=== PATIENT | male | born 1945 | race Caucasian/White ===

== ENCOUNTER 2017-01-16 09:25 | Outpatient (CLI) | payer MEDICARE ==
[2017-01-16 14:16] LABS: ALBUMIN/GLOBULIN RATIO 1.4 (1.0-2.2); BILIRUBIN,TOTAL 0.7 mg/dL (0.2-1.0); CALCIUM 8.9 mg/dL (8.5-10.3); CREATININE 0.7 mg/dL (0.6-1.2); TOTAL PROTEIN 6.8 g/dL (6.7-8.2)
[2017-01-19 08:16] LABS: HDL LARGE 5529 nmol/L (4334-10815); LDL MEDIUM 165 nmol/L (167-465); LDL PARTICLE NUMBER 810 nmol/L (1016-2185); LDL PATTERN A Pattern (A); LDL PEAK SIZE 219.3 Angstrom (> OR = 218.2); LDL SMALL 126 nmol/L (123-441)
[2017-01-19 19:57] LABS: TEST RESULT REPORT
== END 2017-01-16 09:26 | disposition home or self-care (01) ==
LOC: LAB.WCP 09:25
PROVIDERS: ATTEND Specialist
DX: I25.10 Atherosclerotic heart disease of native coronary artery without angina pectoris (principal); E78.5 Hyperlipidemia, unspecified; I10 Essential (primary) hypertension; I45.10 Unspecified right bundle-branch block
CPT/HCPCS: 36415; 80053; 81599; 82465; 83704; 83718; 84478

== ENCOUNTER 2017-09-28 08:13 | Outpatient (CLI) | END 2017-09-28 08:14 | disposition home or self-care (01) ==

== ENCOUNTER 2017-12-31 08:50 | Outpatient (CLI) | payer MEDICARE ==
[2017-12-31 14:53] LABS: ALBUMIN 4.1 g/dL (3.2-5.5); ALBUMIN/GLOBULIN RATIO 1.6 (1.0-2.2); BILIRUBIN,TOTAL 0.8 mg/dL (0.2-1.0); CALCIUM 8.8 mg/dL (8.5-10.3); CREATININE 0.7 mg/dL (0.6-1.2); TOTAL PROTEIN 6.6 g/dL (6.7-8.2)
[2018-01-02 18:06] LABS: HDL LARGE 4389 nmol/L (3382-9376); LDL PARTICLE NUMBER 836 nmol/L (732-2035); LDL PATTERN B Pattern (A); LDL PEAK SIZE 216.8 Angstrom (> OR = 217.4); LDL SMALL 140 nmol/L (85-473)
== END 2017-12-31 08:51 | disposition home or self-care (01) ==
LOC: LAB.WCP 08:50
PROVIDERS: ATTEND Specialist
DX: E78.2 Mixed hyperlipidemia (principal)
CPT/HCPCS: 36415; 80053; 81599; 82465; 83704; 83718; 84478

== ENCOUNTER 2019-01-02 08:00 | Outpatient (CLI) | payer MEDICARE ==
[2018-12-31 12:05] LABS: BASOPHILS % (AUTO) 0.6 %; EOSINOPHILS # (AUTO) 0.2 10^3/uL (0.0-0.7); EOSINOPHILS % (AUTO) 3.3 %; LYMPHOCYTES # (AUTO) 1.4 10^3/uL (1.5-3.5); LYMPHOCYTES % (AUTO) 21.9 %; MEAN CORPUSCULAR HEMOGLOBIN 31.6 pg (27.0-31.0); MEAN CORPUSCULAR HGB CONC 32.4 g/dL (32.0-36.0); MEAN CORPUSCULAR VOLUME 97.3 fL (80.0-94.0); MEAN PLATELET VOLUME 11.4 fL (7.4-11.4); MONOCYTES # (AUTO) 0.6 10^3/uL (0.0-1.0); MONOCYTES % (AUTO) 9.9 %; NEUTROPHILS # (AUTO) 4.1 10^3/uL (1.5-6.6); NEUTROPHILS % (AUTO) 64.1 %; PLT - PLATELET COUNT 172 10^3/uL (130-450); RED BLOOD COUNT 4.12 10^6/uL (4.70-6.10); RED CELL DISTRIBUTION WIDTH 13.6 % (12.0-15.0); WHITE BLOOD COUNT 6.4 x10^3/uL (4.8-10.8)
[2018-12-31 12:30] LABS: PSA FREE 1.372 ng/mL (0.16-2.81)
[2018-12-31 12:31] LABS: PSA TOTAL 3.962 ng/mL (0.000-2.000)
[2018-12-31 12:33] LABS: HB2 TOTAL 13.8 g/dL; HEMOGLOBIN A1C 0.52 g/dL; HEMOGLOBIN A1C % 5.6 % (4.6-6.2)
[2018-12-31 12:34] LABS: ALBUMIN 3.8 g/dL (3.2-5.5); ALBUMIN/GLOBULIN RATIO 1.4 (1.0-2.2); ALKALINE PHOSPHATASE 66 IU/L (42-121); ALT ALANINE AMINOTRANSFERASE 30 IU/L (10-60); AST ASPARTATE AMINOTRANSFERASE 27 IU/L (10-42); BILIRUBIN,TOTAL 0.7 mg/dL (0.2-1.0); BUN - BLOOD UREA NITROGEN 11 mg/dL (6-20); CALCIUM 8.7 mg/dL (8.5-10.3); CARBON DIOXIDE - CO2 29 mmol/L (21-32); CHLORIDE 103 mmol/L (101-111); CHOL/HDL RATIO 3.3 (<5.0); CHOLESTEROL 143 mg/dL; CREATININE 0.6 mg/dL (0.6-1.2); GFR - MDRD 133 (>89); GLUCOSE 110 mg/dL (70-100); HDL CHOLESTEROL 43 mg/dL; LDL CHOLESTEROL,CALCULATED 76 mg/dL; LDL/HDL RATIO 1.8 (<3.6); SODIUM 137 mmol/L (135-145); TOTAL PROTEIN 6.6 g/dL (6.7-8.2); VLDL CHOLESTEROL 24 mg/dL
== END 2019-01-02 23:59 | disposition home or self-care (01) ==
LOC: LAB.WCP 08:00
PROVIDERS: ATTEND Physician Assistant Medical
DX: R73.01 Impaired fasting glucose (principal); R94.31 Abnormal electrocardiogram [ECG] [EKG]; D64.9 Anemia, unspecified; E78.5 Hyperlipidemia, unspecified; F52.21 Male erectile disorder; E78.2 Mixed hyperlipidemia
CPT/HCPCS: 36415; 80053; 80061; 83036; 83721; 84153; 84154; 84443; 85025

== ENCOUNTER 2019-01-26 10:33 | Outpatient (CLI) | payer MEDICARE ==
--- NOTE | 2019-01-26 18:56 | Ultrasound Report ---
Reason: GLOBUS SENSATION Procedure Date: 01/26/2019 Accession Number: [id number] / [id number] Procedure: US - Head or Neck Soft Tissue CPT Code: FULL RESULT: EXAM: THYROID ULTRASOUND EXAM DATE: 01/26/2019 11:15 AM. CLINICAL HISTORY: GLOBUS SENSATION.. Full feeling in the neck COMPARISON: None. TECHNIQUE: Real time sonographic imaging of the thyroid was performed by the underwear welter. Multiple healthcare representative static images were saved for review. FINDINGS: THYROID GLAND: Right Lobe: 4.9 x 1.6 x 1.6 cm, volume 6.5 cc. Normal background echotexture. Right Lobe Nodules: Complex predominantly hypoechoic 6 x 4 x 6 mm upper pole nodule. Left Lobe: 4 x 1.6 x 1.5 cm, volume 5 cc. Normal background echotexture. Left Lobe Nodules: 5 x 3 x 6 mm spongiform lower pole nodule. Isthmus: 0.3 cm AP. Isthmic Nodules: None. LYMPH NODES: No adenopathy demonstrated in the central or lateral compartment. OTHER: None. IMPRESSION: No significant abnormality thyroid ultrasound. Management recommendations are based on 2015 [place] [employer] Management Guidelines for Adult Patients with Thyroid Nodules and Differentiated Thyroid Cancer. RADIA
== END 2019-01-26 10:34 | disposition home or self-care (01) ==
LOC: DI 10:33
PROVIDERS: ATTEND Physician Assistant Medical
DX: F45.8 Other somatoform disorders (principal)
CPT/HCPCS: 76536

== ENCOUNTER 2019-07-01 08:00 | Outpatient (CLI) | payer MEDICARE ==
[2019-07-01 12:13] LABS: ALBUMIN/GLOBULIN RATIO 1.4 (1.0-2.2); ALKALINE PHOSPHATASE 63 IU/L (42-121); ALT ALANINE AMINOTRANSFERASE 24 IU/L (10-60); AST ASPARTATE AMINOTRANSFERASE 26 IU/L (10-42); BILIRUBIN,TOTAL 0.7 mg/dL (0.2-1.0); BUN - BLOOD UREA NITROGEN 12 mg/dL (6-20); CARBON DIOXIDE - CO2 29 mmol/L (21-32); CHLORIDE 105 mmol/L (101-111); CHOL/HDL RATIO 3.1 (<5.0); CHOLESTEROL 146 mg/dL; CREATININE 0.7 mg/dL (0.6-1.2); GLUCOSE 108 mg/dL (70-100); HDL CHOLESTEROL 47 mg/dL; LDL CHOLESTEROL,CALCULATED 80 mg/dL; LDL/HDL RATIO 1.7 (<3.6); PSA FREE 1.13 ng/mL (0.16-2.81); SODIUM 140 mmol/L (135-145); TOTAL PROTEIN 6.9 g/dL (6.7-8.2); VLDL CHOLESTEROL 19 mg/dL
[2019-07-01 12:14] LABS: PSA TOTAL 3.67 ng/mL (0.000-2.000)
== END 2019-07-01 23:59 | disposition home or self-care (01) ==
LOC: LAB.WCP 08:00
PROVIDERS: ATTEND Physician Assistant Medical
DX: E78.5 Hyperlipidemia, unspecified (principal); R97.20 Elevated prostate specific antigen [PSA]
CPT/HCPCS: 36415; 80053; 80061; 83721; 84153; 84154

== ENCOUNTER 2019-11-03 08:08 | Outpatient (CLI) | payer MEDICARE ==
[2019-11-03 11:56] LABS: ALBUMIN/GLOBULIN RATIO 1.4 (1.0-2.2); CALCIUM 8.8 mg/dL (8.5-10.3); CREATININE 0.6 mg/dL (0.6-1.2); TOTAL PROTEIN 6.8 g/dL (6.7-8.2)
[2019-11-07 20:44] LABS: HDL LARGE 5088 nmol/L (>6729); LDL PARTICLE NUMBER 834 nmol/L (<1138); LDL PATTERN A Pattern (A); LDL PEAK SIZE 218.7 Angstrom (>222.9); LDL SMALL 141 nmol/L (<142)
== END 2019-11-03 23:59 | disposition home or self-care (01) ==
LOC: LAB.WCP 08:08
PROVIDERS: ATTEND Specialist
DX: E78.2 Mixed hyperlipidemia (principal)
CPT/HCPCS: 36415; 80053; 80061; 81599; 83704

== ENCOUNTER 2020-01-13 08:42 | Outpatient (CLI) | payer MEDICARE ==
[2020-01-13 12:23] LABS: ALBUMIN/GLOBULIN RATIO 1.4 (1.0-2.2); ALKALINE PHOSPHATASE 73 IU/L (42-121); ALT ALANINE AMINOTRANSFERASE 28 IU/L (10-60); AST ASPARTATE AMINOTRANSFERASE 28 IU/L (10-42); BILIRUBIN,TOTAL 0.8 mg/dL (0.2-1.0); BUN - BLOOD UREA NITROGEN 12 mg/dL (6-20); CALCIUM 8.9 mg/dL (8.5-10.3); CARBON DIOXIDE - CO2 28 mmol/L (21-32); CHLORIDE 105 mmol/L (101-111); CHOL/HDL RATIO 2.8 (<5.0); CHOLESTEROL 138 mg/dL; CREATININE 0.7 mg/dL (0.6-1.2); GLUCOSE 114 mg/dL (70-100); HDL CHOLESTEROL 49 mg/dL; LDL CHOLESTEROL,CALCULATED 71 mg/dL; LDL/HDL RATIO 1.4 (<3.6); SODIUM 138 mmol/L (135-145); TOTAL PROTEIN 6.8 g/dL (6.7-8.2); VLDL CHOLESTEROL 18 mg/dL
[2020-01-13 12:24] LABS: PSA FREE 1.31 ng/mL (0.16-2.81)
[2020-01-13 12:25] LABS: PSA TOTAL 4.36 ng/mL (0.000-2.000)
[2020-01-13 18:43] LABS: BASOPHILS # (AUTO) 0.1 10^3/uL (0.0-0.1); BASOPHILS % (AUTO) 0.8 %; EOSINOPHILS # (AUTO) 0.3 10^3/uL (0.0-0.7); EOSINOPHILS % (AUTO) 4.1 %; HGB - HEMOGLOBIN 13.1 g/dL (14.0-18.0); LYMPHOCYTES # (AUTO) 1.6 10^3/uL (1.5-3.5); LYMPHOCYTES % (AUTO) 23.8 %; MEAN CORPUSCULAR HEMOGLOBIN 32.4 pg (27.0-31.0); MEAN CORPUSCULAR HGB CONC 33.2 g/dL (32.0-36.0); MEAN CORPUSCULAR VOLUME 97.8 fL (80.0-94.0); MEAN PLATELET VOLUME 11.7 fL (7.4-11.4); MONOCYTES # (AUTO) 0.7 10^3/uL (0.0-1.0); MONOCYTES % (AUTO) 10.4 %; NEUTROPHILS % (AUTO) 60.4 %; PLT - PLATELET COUNT 169 10^3/uL (130-450); RED BLOOD COUNT 4.04 10^6/uL (4.70-6.10); RED CELL DISTRIBUTION WIDTH 13.4 % (12.0-15.0); WHITE BLOOD COUNT 6.7 x10^3/uL (4.8-10.8)
== END 2020-01-13 23:59 | disposition home or self-care (01) ==
LOC: LAB.WCP 08:42
PROVIDERS: ATTEND Physician Assistant Medical
DX: E78.5 Hyperlipidemia, unspecified (principal); R97.20 Elevated prostate specific antigen [PSA]; D64.9 Anemia, unspecified
CPT/HCPCS: 36415; 80053; 80061; 83721; 84153; 84154; 85025

== ENCOUNTER 2020-07-19 08:00 | Outpatient (CLI) | payer MEDICARE ==
[2020-07-19 12:20] LABS: ALBUMIN 3.9 g/dL (3.2-5.5); ALBUMIN/GLOBULIN RATIO 1.3 (1.0-2.2); BILIRUBIN,TOTAL 0.7 mg/dL (0.2-1.0); CALCIUM 9.2 mg/dL (8.5-10.3); CREATININE 0.6 mg/dL (0.6-1.2); POTASSIUM 4.1 mmol/L (3.5-5.0); TOTAL PROTEIN 6.8 g/dL (6.7-8.2)
== END 2020-07-19 23:59 | disposition home or self-care (01) ==
LOC: LAB.WCP 08:00
PROVIDERS: ATTEND Physician Assistant Medical
DX: R73.01 Impaired fasting glucose (principal)
CPT/HCPCS: 36415; 80053

== ENCOUNTER 2020-07-24 08:00 | Outpatient (CLI) | payer MEDICARE ==
[2020-07-24 18:37] LABS: PSA FREE 0.993 ng/mL (0.16-2.81)
[2020-07-24 18:38] LABS: BASOPHILS % (AUTO) 0.7 %; EOSINOPHILS # (AUTO) 0.1 10^3/uL (0.0-0.7); EOSINOPHILS % (AUTO) 1.6 %; HCT - HEMATOCRIT 42.8 % (42.0-52.0); LYMPHOCYTES # (AUTO) 1.4 10^3/uL (1.5-3.5); LYMPHOCYTES % (AUTO) 24.7 %; MEAN CORPUSCULAR HEMOGLOBIN 32.4 pg (27.0-31.0); MEAN CORPUSCULAR HGB CONC 32.7 g/dL (32.0-36.0); MEAN CORPUSCULAR VOLUME 99.1 fL (80.0-94.0); MEAN PLATELET VOLUME 11.4 fL (7.4-11.4); MONOCYTES # (AUTO) 0.6 10^3/uL (0.0-1.0); MONOCYTES % (AUTO) 10.9 %; NEUTROPHILS # (AUTO) 3.6 10^3/uL (1.5-6.6); NEUTROPHILS % (AUTO) 61.8 %; PLT - PLATELET COUNT 169 10^3/uL (130-450); PSA TOTAL 3.139 ng/mL (0.000-2.000); RED BLOOD COUNT 4.32 10^6/uL (4.70-6.10); RED CELL DISTRIBUTION WIDTH 13.3 % (12.0-15.0); WHITE BLOOD COUNT 5.8 x10^3/uL (4.8-10.8)
[2020-07-24 20:08] LABS: ESTIMATED AVERAGE GLUCOSE 117 mg/dL (70-100); HEMOGLOBIN A1c% 5.7 % (4.27-6.07)
== END 2020-07-24 23:59 | disposition home or self-care (01) ==
LOC: LAB.WCP 08:00
PROVIDERS: ATTEND Physician Assistant Medical
DX: D64.9 Anemia, unspecified (principal); R73.01 Impaired fasting glucose; R97.20 Elevated prostate specific antigen [PSA]
CPT/HCPCS: 36415; 83036; 84153; 84154; 85025

== ENCOUNTER 2020-11-12 08:00 | Outpatient (CLI) | payer MEDICARE ==
[2020-11-12 12:44] LABS: BASOPHILS % (AUTO) 0.8 %; EOSINOPHILS # (AUTO) 0.2 10^3/uL (0.0-0.7); EOSINOPHILS % (AUTO) 3.5 %; HCT - HEMATOCRIT 41.2 % (42.0-52.0); HGB - HEMOGLOBIN 13.6 g/dL (14.0-18.0); LYMPHOCYTES # (AUTO) 1.4 10^3/uL (1.5-3.5); LYMPHOCYTES % (AUTO) 27.1 %; MEAN CORPUSCULAR HEMOGLOBIN 32.5 pg (27.0-31.0); MEAN CORPUSCULAR VOLUME 98.3 fL (80.0-94.0); MEAN PLATELET VOLUME 11.7 fL (7.4-11.4); MONOCYTES # (AUTO) 0.5 10^3/uL (0.0-1.0); NEUTROPHILS # (AUTO) 3.1 10^3/uL (1.5-6.6); NEUTROPHILS % (AUTO) 58.4 %; PLT - PLATELET COUNT 169 10^3/uL (130-450); RED BLOOD COUNT 4.19 10^6/uL (4.70-6.10); RED CELL DISTRIBUTION WIDTH 13.6 % (12.0-15.0); WHITE BLOOD COUNT 5.2 x10^3/uL (4.8-10.8)
[2020-11-12 12:54] LABS: ALBUMIN/GLOBULIN RATIO 1.7 (1.0-2.2); ALKALINE PHOSPHATASE 66 IU/L (42-121); ALT ALANINE AMINOTRANSFERASE 26 IU/L (10-60); AST ASPARTATE AMINOTRANSFERASE 26 IU/L (10-42); BILIRUBIN,TOTAL 0.9 mg/dL (0.2-1.0); BUN - BLOOD UREA NITROGEN 11 mg/dL (6-20); CARBON DIOXIDE - CO2 29 mmol/L (21-32); CHLORIDE 101 mmol/L (101-111); CHOLESTEROL 141 mg/dL; CREATININE 0.6 mg/dL (0.6-1.2); GFR - MDRD 132 (>89); GLUCOSE 118 mg/dL (70-100); HDL CHOLESTEROL 47 mg/dL; LDL CHOLESTEROL,CALCULATED 74 mg/dL; LDL/HDL RATIO 1.6 (<3.6); POTASSIUM 4.1 mmol/L (3.5-5.0); SODIUM 136 mmol/L (135-145); TOTAL PROTEIN 6.4 g/dL (6.7-8.2); TRIGLYCERIDES 102 mg/dL; VLDL CHOLESTEROL 20 mg/dL
[2020-11-12 13:28] LABS: ESTIMATED AVERAGE GLUCOSE 108 mg/dL (70-100); HEMOGLOBIN A1c% 5.4 % (4.27-6.07)
== END 2020-11-12 23:59 | disposition home or self-care (01) ==
LOC: LAB.WCP 08:00
PROVIDERS: ATTEND Physician Assistant Medical
DX: R73.01 Impaired fasting glucose (principal); D64.9 Anemia, unspecified
CPT/HCPCS: 36415; 80053; 80061; 83036; 83721; 85025

== ENCOUNTER 2020-12-13 08:49 | Outpatient (CLI) | payer MEDICARE ==
[2020-12-13 12:37] LABS: CALCIUM 9.3 mg/dL (8.5-10.3); CREATININE 0.7 mg/dL (0.6-1.2); POTASSIUM 4.2 mmol/L (3.5-5.0)
== END 2020-12-13 23:59 | disposition home or self-care (01) ==
LOC: LAB.WCP 08:49
PROVIDERS: ATTEND Specialist
DX: I10 Essential (primary) hypertension (principal)
CPT/HCPCS: 36415; 80048

== ENCOUNTER 2021-02-12 07:18 | Outpatient (CLI) | payer MEDICARE ==
[2021-02-12 12:06] LABS: BASOPHILS % (AUTO) 0.7 %; EOSINOPHILS # (AUTO) 0.1 10^3/uL (0.0-0.7); EOSINOPHILS % (AUTO) 2.4 %; HGB - HEMOGLOBIN 13.8 g/dL (14.0-18.0); LYMPHOCYTES # (AUTO) 1.5 10^3/uL (1.5-3.5); LYMPHOCYTES % (AUTO) 27.1 %; MEAN CORPUSCULAR HEMOGLOBIN 32.9 pg (27.0-31.0); MEAN CORPUSCULAR HGB CONC 33.7 g/dL (32.0-36.0); MEAN CORPUSCULAR VOLUME 97.6 fL (80.0-94.0); MEAN PLATELET VOLUME 11.2 fL (7.4-11.4); MONOCYTES # (AUTO) 0.5 10^3/uL (0.0-1.0); MONOCYTES % (AUTO) 9.9 %; NEUTROPHILS # (AUTO) 3.2 10^3/uL (1.5-6.6); NEUTROPHILS % (AUTO) 59.5 %; PLT - PLATELET COUNT 178 10^3/uL (130-450); RED CELL DISTRIBUTION WIDTH 13.2 % (12.0-15.0); WHITE BLOOD COUNT 5.4 x10^3/uL (4.8-10.8)
[2021-02-12 12:14] LABS: ESTIMATED AVERAGE GLUCOSE 117 mg/dL (70-100); HEMOGLOBIN A1c% 5.7 % (4.27-6.07)
[2021-02-12 12:20] LABS: CALCIUM 9.2 mg/dL (8.5-10.3); CREATININE 0.7 mg/dL (0.6-1.2); POTASSIUM 4.3 mmol/L (3.5-5.0)
== END 2021-02-12 07:19 | disposition home or self-care (01) ==
LOC: LAB.N 07:18
PROVIDERS: ATTEND Physician Assistant Medical
DX: D64.9 Anemia, unspecified (principal); R73.01 Impaired fasting glucose
CPT/HCPCS: 36415; 80048; 83036; 85025

== ENCOUNTER 2021-08-14 08:01 | Outpatient (CLI) | payer MEDICARE ==
[2021-08-14 11:55] LABS: BASOPHILS # (AUTO) 0.1 10^3/uL (0.0-0.1); EOSINOPHILS # (AUTO) 0.3 10^3/uL (0.0-0.7); EOSINOPHILS % (AUTO) 5.3 %; HCT - HEMATOCRIT 39.6 % (42.0-52.0); HGB - HEMOGLOBIN 13.6 g/dL (14.0-18.0); LYMPHOCYTES # (AUTO) 1.5 10^3/uL (1.5-3.5); LYMPHOCYTES % (AUTO) 26.4 %; MEAN CORPUSCULAR HEMOGLOBIN 32.9 pg (27.0-31.0); MEAN CORPUSCULAR HGB CONC 34.3 g/dL (32.0-36.0); MEAN CORPUSCULAR VOLUME 95.9 fL (80.0-94.0); MEAN PLATELET VOLUME 11.3 fL (7.4-11.4); MONOCYTES # (AUTO) 0.7 10^3/uL (0.0-1.0); MONOCYTES % (AUTO) 11.8 %; NEUTROPHILS # (AUTO) 3.2 10^3/uL (1.5-6.6); PLT - PLATELET COUNT 189 10^3/uL (130-450); RED BLOOD COUNT 4.13 10^6/uL (4.70-6.10); WHITE BLOOD COUNT 5.8 x10^3/uL (4.8-10.8)
[2021-08-14 12:07] LABS: ALBUMIN 4.2 g/dL (3.2-5.5); ALBUMIN/GLOBULIN RATIO 1.6 (1.0-2.2); ALKALINE PHOSPHATASE 77 IU/L (42-121); ALT ALANINE AMINOTRANSFERASE 26 IU/L (10-60); AST ASPARTATE AMINOTRANSFERASE 29 IU/L (10-42); BILIRUBIN,TOTAL 0.8 mg/dL (0.2-1.0); BUN - BLOOD UREA NITROGEN 12 mg/dL (6-20); CALCIUM 9.2 mg/dL (8.5-10.3); CARBON DIOXIDE - CO2 27 mmol/L (21-32); CHLORIDE 100 mmol/L (101-111); CHOL/HDL RATIO 2.4 (<5.0); CHOLESTEROL 119 mg/dL; CREATININE 0.7 mg/dL (0.6-1.2); GFR - MDRD 111 (>89); GLUCOSE 128 mg/dL (70-100); HDL CHOLESTEROL 49 mg/dL; LDL CHOLESTEROL,CALCULATED 57 mg/dL; LDL/HDL RATIO 1.2 (<3.6); POTASSIUM 4.5 mmol/L (3.5-5.0); SODIUM 135 mmol/L (135-145); TOTAL PROTEIN 6.9 g/dL (6.7-8.2); TRIGLYCERIDES 65 mg/dL; VLDL CHOLESTEROL 13 mg/dL
== END 2021-08-14 08:02 | disposition home or self-care (01) ==
LOC: LAB.N 08:01
PROVIDERS: ATTEND Physician Assistant Medical
DX: E78.5 Hyperlipidemia, unspecified (principal); D64.9 Anemia, unspecified
CPT/HCPCS: 36415; 80053; 80061; 83721; 85025

== ENCOUNTER 2021-10-22 08:28 | Outpatient (CLI) | payer MEDICARE ==
[2021-10-22 13:18] LABS: ALBUMIN 4.2 g/dL (3.2-5.5); ALBUMIN/GLOBULIN RATIO 1.5 (1.0-2.2); BILIRUBIN,TOTAL 0.7 mg/dL (0.2-1.0); CALCIUM 9.3 mg/dL (8.5-10.3); CREATININE 0.6 mg/dL (0.6-1.2); POTASSIUM 4.4 mmol/L (3.5-5.0)
== END 2021-10-22 08:29 | disposition home or self-care (01) ==
LOC: LAB.N 08:28
PROVIDERS: ATTEND Specialist
DX: E78.2 Mixed hyperlipidemia (principal)
CPT/HCPCS: 36415; 80053; 83704

== ENCOUNTER 2021-10-31 07:15 | Outpatient (CLI) | payer MEDICARE ==
[2021-11-03 08:07] LABS: HDL-P (TOTAL) 28.5 umol/L (>=30.5); LDL SIZE 20.9 nm (>20.5); LDL-P 588 nmol/L (<1000); LP-INSULIN RESISTANCE SCORE 49 (<=45); SMALL LDL-P 271 nmol/L (<=527)
== END 2021-10-31 07:16 | disposition home or self-care (01) ==
LOC: LAB.N 07:15
PROVIDERS: ATTEND Specialist
DX: E78.2 Mixed hyperlipidemia (principal)
CPT/HCPCS: 36415; 83704

== ENCOUNTER 2022-03-11 07:22 | Day surgery (SDC) | payer MEDICARE ==
[2022-03-11] MEDS ORDERED: LACTATED RINGERS 1,000 ML IV ONE ×2 (07:55→09:38)
--- NOTE | 2022-03-11 08:18 | ANESTHESIA ---
Pre-Anesthesia VS, & Labs - Diagnosis +cologaurd - Procedure colonoscopy Vital Signs: Temp Pulse Resp BP Pulse Ox O2 Flow Rate 36.6 C 63 16 141/73 H 100 03/11/22 07:48 03/11/22 07:48 03/11/22 07:48 03/11/22 07:48 03/11/22 07:48 Height: 5 ft 8 in Weight (kg): 67.1 kg Body Mass Index: 22.4 BMI Classification: Normal - NPO >8 hours Home Medications and Allergies Home Medications: Ambulatory Orders Brimonidine 0.1% Ophth Drops [Alphagan P 0.1% Ophth Drops] 1 drops EACHEYE DAILY 03/10/22 Latanoprost/Pf [Latanoprost 0.005% Eye Drop] 1 drops OP DAILY 03/10/22 Timolol [Betimol] 5 ml EACHEYE DAILY 03/10/22 Aspirin Chewable [[facility] Aspirin] 1 tab ORAL DAILY 08/26/12 Lovastatin 1 tab ORAL HS 08/26/12 Niacin [Niaspan] 1,500 mg ORAL DAILY 08/26/12 lisinopriL [Zestril] 10 mg PO DAILY 08/26/12 Brimonidine 0.1% Ophth Drops [Alphagan P 0.1% Ophth Drops] 1 drops EACHEYE DAILY 03/10/22 Latanoprost/Pf [Latanoprost 0.005% Eye Drop] 1 drops OP DAILY 03/10/22 Timolol [Betimol] 5 ml EACHEYE DAILY 03/10/22 Allergies/Adverse Reactions: Allergies Allergy/AdvReac Type Severity Reaction Status Date / Time No Known Drug Allergies Allergy Verified 08/26/12 09:39 Anes History & Medical History - Anesthetic History Anesthesia Complications: reports: No previous complications Family history of Anesthesia Complications: Denies Family history of Malignant Hyperthermia: Denies - Medical History Cardiovascular: reports: Hypertension, High cholesterol, Coronary artery disease (Angioplasty 2002) Pulmonary: reports: None Gastrointestinal: reports: GERD, Hiatal hernia, Other (pt states differntial dx: hiatal hernia) Urinary: reports: None Neuro: reports: None Musculoskeletal: reports: None Endocrine/Autoimmune: reports: None Blood Disorders: reports: None Smoking Status: Never smoker Psychosocial: reports: No issues indicated History of Cancer?: No - Surgical History General: reports: EGD, Colonoscopy Eyes Ears Nose Throat (EENT): reports: Other (wisdom tooth removal) Cardiothoracic: reports: Angioplasty Exam General: Alert, Oriented x3, Cooperative, No acute distress Dental: WNL Mouth Openin Fingerbreadth Neck Mobility: Normal Mallampati classification: III Thyromental Distance: 4-6 cm Mental/Cognitive Status: Alert/Oriented X3, Normal for patient Cognitive Status: Within normal limits Plan Anesthesia Type: General, Total IV Consent for Procedure(s) Verified and Reviewed: Yes Code Status: Attempt Resuscitation ASA classification: 2-Mild systemic disease Is this case an emergency?: No
[2022-03-11] MEDS ORDERED: PROPOFOL 500 MG/50 ML 500 MG/50 ML VIAL ONE (08:28)
[2022-03-11 10:34] VITALS: BP 133/65
--- NOTE | 2022-03-11 12:09 | ANESTHESIA POST OP EVALUATION ---
Anesthesia Post Eval - Post Anesthesia Eval Vitals: Last Vital Signs Temp 36.2 C L 03/11/22 10:15 Pulse 56 L 03/11/22 10:15 Resp 16 03/11/22 10:15 BP 133/65 H 03/11/22 10:15 Pulse Ox 100 03/11/22 10:15 O2 Flow Rate CV Function Including HR & BP: Stable Pain Control: Satisfactory Nausea & Vomiting: Negative Mental Status: Baseline Respiratory Status: Airway Patent Hydration Status: Satisfactory Anesthesia Complications: None
== END 2022-03-11 07:23 | disposition home or self-care (01) ==
LOC: SDS 07:22
PROVIDERS: ATTEND Surgery
DX: R19.5 Other fecal abnormalities (principal); K57.30 Diverticulosis of large intestine without perforation or abscess without bleeding
CPT/HCPCS: 45378; J7120

== ENCOUNTER 2022-08-26 09:25 | Day surgery (SDC) | payer MEDICARE ==
--- NOTE | 2022-08-26 07:02 | ANESTHESIA ---
Pre-Anesthesia VS, & Labs - Diagnosis positive cologuard - Procedure colonoscopy Height: 5 ft 8 in - NPO >8 hours Last Fluid Intake: am prep - Lab Results Lab results reviewed: Yes Home Medications and Allergies Aspirin Chewable [[facility] Aspirin] 1 tab ORAL DAILY 08/26/12 Niacin [Niaspan] 1,500 mg ORAL DAILY 08/26/12 Brimonidine 0.1% Ophth Drops [Alphagan P 0.1% Ophth Drops] 1 drops EACHEYE DAILY 03/10/22 Latanoprost/Pf [Latanoprost 0.005% Eye Drop] 1 drops OP DAILY 03/10/22 Timolol [Betimol] 5 ml EACHEYE DAILY 03/10/22 Allergies/Adverse Reactions: Allergies Allergy/AdvReac Type Severity Reaction Status Date / Time No Known Drug Allergies Allergy Verified 08/26/12 09:39 Anes History & Medical History - Anesthetic History Anesthesia Complications: reports: No previous complications Family history of Anesthesia Complications: Denies Family history of Malignant Hyperthermia: Denies - Medical History Cardiovascular: reports: Hypertension, High cholesterol, Coronary artery disease Pulmonary: reports: None Gastrointestinal: reports: GERD, Hiatal hernia Urinary: reports: None Neuro: reports: None Musculoskeletal: reports: None Endocrine/Autoimmune: reports: None Blood Disorders: reports: None Smoking Status: Never smoker - Surgical History General: reports: Colonoscopy Eyes Ears Nose Throat (EENT): reports: Other (wisdom tooth removal) Cardiothoracic: reports: Coronary stent Exam General: Alert, Oriented x3, Cooperative Dental: WNL Mouth Openin Fingerbreadth Neck Mobility: Normal Mallampati classification: II Thyromental Distance: 4-6 cm Respiratory: Lungs clear, Normal breath sounds, No respiratory distress Cardiovascular: Regular rate Neurological: Normal speech Mental/Cognitive Status: Alert/Oriented X3, Normal for patient Cognitive Status: Within normal limits Plan Anesthesia Type: Total IV Consent for Procedure(s) Verified and Reviewed: Yes Code Status: Attempt Resuscitation ASA classification: 2-Mild systemic disease Is this case an emergency?: No
[2022-08-26] MEDS ORDERED: PROPOFOL 500 MG/50 ML 500 MG/50 ML VIAL ONE (09:31)
[2022-08-26] MEDS ORDERED: MIDAZOLAM 2 MG/2 ML VIAL ONE (09:54)
[2022-08-26] MEDS ORDERED: LACTATED RINGERS 1,000 ML IV ONE ×2 (10:05→11:00)
[2022-08-26] MEDS ORDERED: GLYCOPYRROLATE 1 MG/5 ML VIAL ONE (10:17)
[2022-08-26] MEDS ORDERED: PHENYLEPHRINE 10 MG/ML VIAL ONE (10:51)
[2022-08-26 11:17] VITALS: BP 132/65
--- NOTE | 2022-08-26 11:31 | ANESTHESIA POST OP EVALUATION ---
Anesthesia Post Eval - Post Anesthesia Eval Vitals: Last Vital Signs Temp 36.2 C L 08/26/22 11:15 Pulse 68 08/26/22 11:15 Resp 16 08/26/22 11:15 BP 132/65 H 08/26/22 11:15 Pulse Ox 98 08/26/22 11:15 O2 Flow Rate CV Function Including HR & BP: Stable Pain Control: Satisfactory Nausea & Vomiting: Negative Mental Status: Baseline Respiratory Status: Airway Patent Hydration Status: Satisfactory Anesthesia Complications: None
== END 2022-08-26 09:26 | disposition home or self-care (01) ==
LOC: SDS 09:25
PROVIDERS: ATTEND Surgery
PROC: 0DBL8ZZ Excision of Transverse Colon, Via Natural or Artificial Opening Endoscopic (ICD-10-PCS; 2022-08-26)
PROC: 3E0H8KZ Introduction of Other Diagnostic Substance into Lower GI, Via Natural or Artificial Opening Endoscopic (ICD-10-PCS; 2022-08-26)
PROC: 0DBP8ZZ Excision of Rectum, Via Natural or Artificial Opening Endoscopic (ICD-10-PCS; principal; 2022-08-26 10:30)
DX: Z12.11 Encounter for screening for malignant neoplasm of colon (principal); R19.5 Other fecal abnormalities; D12.3 Benign neoplasm of transverse colon; K62.1 Rectal polyp; K57.30 Diverticulosis of large intestine without perforation or abscess without bleeding; I10 Essential (primary) hypertension; I25.10 Atherosclerotic heart disease of native coronary artery without angina pectoris
CPT/HCPCS: 45380; 45381; 45385; J7120

== ENCOUNTER 2022-09-19 08:00 | Outpatient (CLI) | payer MEDICARE ==
[2022-09-19 12:22] LABS: ALBUMIN 3.7 g/dL (3.2-5.5); ALBUMIN/GLOBULIN RATIO 1.2 (1.0-2.2); ALKALINE PHOSPHATASE 71 IU/L (42-121); ALT ALANINE AMINOTRANSFERASE 24 IU/L (10-60); AST ASPARTATE AMINOTRANSFERASE 29 IU/L (10-42); BILIRUBIN,TOTAL 0.7 mg/dL (0.2-1.0); BUN - BLOOD UREA NITROGEN 15 mg/dL (6-20); CALCIUM 8.7 mg/dL (8.5-10.3); CARBON DIOXIDE - CO2 29 mmol/L (21-32); CHLORIDE 106 mmol/L (101-111); CHOL/HDL RATIO 2.8 (<5.0); CHOLESTEROL 138 mg/dL; CREATININE 0.7 mg/dL (0.6-1.2); GFR - MDRD 110 (>89); GLUCOSE 124 mg/dL (70-100); HDL CHOLESTEROL 50 mg/dL; LDL CHOLESTEROL,CALCULATED 71 mg/dL; LDL/HDL RATIO 1.4 (<3.6); POTASSIUM 4.4 mmol/L (3.5-5.0); SODIUM 140 mmol/L (135-145); TOTAL PROTEIN 6.7 g/dL (6.7-8.2); TRIGLYCERIDES 84 mg/dL; VLDL CHOLESTEROL 17 mg/dL
== END 2022-09-19 23:59 | disposition home or self-care (01) ==
LOC: LAB.N 08:00
PROVIDERS: ATTEND Specialist
DX: E78.2 Mixed hyperlipidemia (principal)
CPT/HCPCS: 36415; 80053; 80061; 83721

== ENCOUNTER 2023-03-09 07:26 | Outpatient (CLI) | payer MEDICARE ==
[2023-03-09 12:24] LABS: ESTIMATED AVERAGE GLUCOSE 111 mg/dL (70-100); HEMOGLOBIN A1c% 5.5 % (4.27-6.07)
[2023-03-09 12:49] LABS: ALBUMIN 4.1 g/dL (3.2-5.5); ALBUMIN/GLOBULIN RATIO 1.8 (1.0-2.2); ALKALINE PHOSPHATASE 83 IU/L (42-121); ALT ALANINE AMINOTRANSFERASE 19 IU/L (10-60); AST ASPARTATE AMINOTRANSFERASE 22 IU/L (10-42); BILIRUBIN,TOTAL 0.4 mg/dL (0.2-1.0); BUN - BLOOD UREA NITROGEN 11 mg/dL (6-20); CALCIUM 9.3 mg/dL (8.5-10.3); CARBON DIOXIDE - CO2 31 mmol/L (21-32); CHLORIDE 104 mmol/L (101-111); CHOL/HDL RATIO 2.7 (<5.0); CHOLESTEROL 133 mg/dL; CREATININE 0.6 mg/dL (0.6-1.3); GFR - MDRD 131 (>89); GLUCOSE 108 mg/dL (74-104); HDL CHOLESTEROL 49 mg/dL; LDL CHOLESTEROL,CALCULATED 69 mg/dL; LDL/HDL RATIO 1.4 (<3.6); POTASSIUM 4.3 mmol/L (3.5-4.5); SODIUM 138 mmol/L (135-145); TOTAL PROTEIN 6.4 g/dL (6.4-8.9); TRIGLYCERIDES 75 mg/dL (48-352); VLDL CHOLESTEROL 15 mg/dL
== END 2023-03-09 07:27 | disposition home or self-care (01) ==
LOC: LAB.N 07:26
PROVIDERS: ATTEND Physician Assistant Medical
DX: E78.5 Hyperlipidemia, unspecified (principal); R73.01 Impaired fasting glucose
CPT/HCPCS: 36415; 80053; 80061; 83036; 83721